=== PATIENT | female | born 1995 | race Caucasian/White ===

== ENCOUNTER → 2017-04-23 | Outpatient (CLI) | payer OTHER ==
[~2017-04-23] MED LIST: PRENTAB26 PO
--- NOTE | 2017-04-23 16:06 | DIAGNOSTIC IMAGING REPORT ---
LUMBAR SPINE W/O CONTRAST CLINICAL HISTORY: 22 years-old Female with LUMBAR RADICULOPATHY. Patient presents with low back pain for 2 years with pain radiating into the left hip and left thigh. No reported trauma. COMPARISON: Lumbar spine radiographs 09/02/2015. TECHNIQUE: Multiplanar, multi sequence MRI of the lumbar spine was performed without intravenous contrast. FINDINGS: The lumbar alignment is normal. The vertebral body heights are normal. There is no T1 fracture line or marrow replacement process. The conus terminates at T12-L1. The visualized spinal cord and cauda equina are normal. There is no paraspinal edema, mass, or prevertebral fluid collection. The intra-abdominal structures are grossly unremarkable. Disc desiccation is noted at L1-L2 and L4-L5. Modic type III endplate changes are seen at L1-L2. There is mild intervertebral disc space narrowing also seen at L5-S1. T12-L1: No central canal or neural foraminal stenosis. L1-L2: Mild intervertebral disc space narrowing with endplate degenerative changes. Circumferential annular disc bulge effaces the ventral thecal sac without significant central canal or foraminal narrowing. L2-L3: Small broad-based posterior disc bulge without central canal or foraminal narrowing. L3-L4: Small broad-based posterior disc bulge without central canal or foraminal narrowing. Trace facet effusions and mild left facet arthropathy. L4-L5: Mild intervertebral disc space narrowing with slight loss of disc height space and signal. There is a central/left paracentral disc protrusion measuring up to 0.5 x 1.4 x 0.4 cm in AP, transverse and craniocaudal dimensions respectively which extends below the superior endplate of L5. This causes mild central canal and moderate left lateral recess stenosis abutting and displacing the adjacent left L5 nerve root as seen on image 19 of the axial series causing mild left foraminal narrowing. The right foramen is patent. There is mild facet arthropathy with trace facet effusions. L5-S1: Mild posterior intervertebral disc space narrowing with broad-based posterior disc bulge, mild facet arthropathy and trace facet effusions. No central canal or foraminal narrowing. IMPRESSION: 1. At L4-L5 there is mild intervertebral disc space narrowing with central/left paracentral disc protrusion causing mild central canal, mild left foraminal and moderate left lateral recess stenosis abutting and displacing the adjacent left L5 nerve root. 2. Mild intervertebral disc space narrowing with circumferential annular disc bulge at L1-L2 without significant central canal or foraminal narrowing. The above report was generated using voice recognition software. It may contain grammatical, syntax or spelling errors. Electronically signed by: Branden No M.D. 04/23/2017 4:05 PM Dictated Date/Time: 04/23/2017 3:56 PM
== END | disposition home or self-care (01) ==
LOC: C.MRI 15:12
PROVIDERS: ATTEND Orthopaedic Surgery
DX: M54.16 Radiculopathy, lumbar region (principal); M99.73 Connective tissue and disc stenosis of intervertebral foramina of lumbar region

== ENCOUNTER 2017-05-13 14:12 | Emergency (ER) | payer OTHER ==
[~2017-05-13] VITALS: Ht 170.2 cm; Wt 69.0 kg
[2017-05-13 14:15] VITALS: BP 130/86; PULSE 87; TEMP 37.4; O2SAT 97; Ht 170.2 cm; Wt 69.0 kg
== END 2017-05-13 15:00 | disposition left against medical advice (07) ==
LOC: C.EDB 14:14
DX: R07.9 Chest pain, unspecified (principal); R06.02 Shortness of breath; R42 Dizziness and giddiness

== ENCOUNTER 2017-05-13 15:10 | Emergency (ER) | payer OTHER ==
[~2017-05-13] VITALS: Ht 170.2 cm; Wt 69.2 kg
[2017-05-13 15:26] VITALS: BP 118/78; PULSE 79; TEMP 36.8; O2SAT 100; Ht 170.2 cm; Wt 69.2 kg
--- NOTE | 2017-05-13 19:49 | EMERGENCY ROOM VISIT NOTE ---
ED Visit Note First contact with patient: 17:46 Upon attempting to evaluate the patient, she had eloped when I arrived.
== END 2017-05-13 17:10 | disposition left against medical advice (07) ==
LOC: C.EDB 15:11 → C.EDC 17:10
DX: Z53.21 Procedure and treatment not carried out due to patient leaving prior to being seen by health care provider (principal)

== ENCOUNTER → 2017-08-06 | Outpatient (CLI) | payer OTHER ==
[2017-08-10 02:18] LABS: CHLAMYDIA TRACH RNA*** NOT DETECTED (NOT DETECTED); GC (NEIS GONORRHOEAE)RNA** NOT DETECTED (NOT DETECTED)
== END | disposition home or self-care (01) ==
LOC: C.LAB1850 16:21
PROVIDERS: ATTEND Obstetrics & Gynecology
DX: Z11.3 Encounter for screening for infections with a predominantly sexual mode of transmission (principal)

== ENCOUNTER → 2017-08-06 | Outpatient (CLI) | payer OTHER | END | disposition home or self-care (01) | LOC: C.PAPS 09:57 | PROVIDERS: ATTEND Obstetrics & Gynecology | DX: Z01.419 Encounter for gynecological examination (general) (routine) without abnormal findings (principal) ==

== ENCOUNTER 2017-09-02 13:39 | Emergency (ER) | payer OTHER ==
[~2017-09-02] VITALS: Ht 170.2 cm; Wt 71.4 kg
[2017-09-02 13:41] VITALS: TEMP 36.6; Ht 170.2 cm; Wt 71.4 kg
[2017-09-02] MEDS ORDERED: BSP/5 PO (14:10)
[2017-09-02] MEDS ORDERED: ZLF/50 PO (14:10)
[2017-09-02] MEDS ORDERED: NORGTAB50 PO (14:10)
--- NOTE | 2017-09-02 14:48 | DIAGNOSTIC IMAGING REPORT ---
RIGHT SHOULDER 3 VIEWS CLINICAL HISTORY: Right shoulder pain. No trauma. FINDINGS: 3 views of the right shoulder are obtained. No prior studies are available for comparison at the time of dictation. The skeletal structures are well mineralized. No fracture or dislocation is seen. The glenohumeral and acromioclavicular joints are well-maintained. The overlying soft tissues are within normal limits. Visualized right lung parenchyma appears clear. IMPRESSION: Unremarkable radiographic assessment of the right shoulder. Electronically signed by: Coy Murray M.D. 09/02/2017 2:47 PM Dictated Date/Time: 09/02/2017 2:46 PM
--- NOTE | 2017-09-02 14:58 | EMERGENCY ROOM VISIT NOTE ---
ED Visit Note First contact with patient: 13:51 CHIEF COMPLAINT: Right shoulder pain HISTORY OF PRESENT ILLNESS: This 22-year-old female presents the ER with chief complaint of right shoulder pain which started yesterday after she got up. The patient states it is getting progressively worse. She denies any known injury. The patient states she did not have the shoulder pain when she woke up yesterday. She points to an area on the mid clavicle where it hurts. The patient denies any prior clavicle fracture. The patient states it hurts to move the shoulder so she has not been moving her arm. The patient is right- hand dominant. The patient states she took ibuprofen at 9 AM without any relief of the pain. REVIEW OF SYSTEMS: 6 system review was performed and was negative unless stated otherwise in history of present illness. PMH: The patient is healthy; left knee surgery SOCIAL HISTORY: Patient lives with her . The patient denies any tobacco or alcohol use. PHYSICAL EXAM: Vital Signs: Were reviewed Reviewed nurse's notes. GEN.: 22-year -old white female appears in no acute distress. MENTAL Status: Alert and oriented 3 RIGHT shoulder: No gross bony deformity noted. No erythema or edema noted. The patient has tenderness palpation over the mid to lateral clavicle area. The patient is nontender to palpation over the bicipital groove or over the humeral head. She has slight tenderness palpation on the trapezius. Limited range of motion secondary to pain although I can passively move the arm in all directions in full range of motion. Embossing Machine Tender strength is 5 out of 5 as compared to the left. The patient has no increased pain with her elbow down by her side and resisted supination of the forearm. EMERGENCY DEPARTMENT COURSE: The patient was evaluated. The patient drove herself to the emergency room therefore she cannot receive any additional stronger pain medication. X-ray of the right shoulder was ordered interpreted by the radiologist and myself. DIAGNOSTICS:RIGHT SHOULDER 3 VIEWS CLINICAL HISTORY: Right shoulder pain. No trauma. FINDINGS: 3 views of the right shoulder are obtained. No prior studies are available for comparison at the time of dictation. The skeletal structures are well mineralized. No fracture or dislocation is seen. The glenohumeral and acromioclavicular joints are well-maintained. The overlying soft tissues are within normal limits. Visualized right lung parenchyma appears clear. IMPRESSION: Unremarkable radiographic assessment of the right shoulder. Electronically signed by: Coy Murray M.D. 09/02/2017 2:47 PM The patient was informed of the findings. The patient is placed in an arm sling and discharged home in stable condition. DIAGNOSIS: Right shoulder pain DISCHARGE INSTRUCTIONS & TREATMENT: Rest the arm in a sling until the pain subsides. Sure you take your arm out of the sling intermittently and move it around to prevent the shoulder from getting stiff. Apply ice to the shoulder intermittently and frequently over the next 24 hours. Ibuprofen 600 mg every 6 hours if needed for pain. Take Flexeril as directed. Do not drive while taking the Flexeril. Take [place] as needed for additional pain relief. Do not drive while taken the [place]. See your own doctor or an orthopedic surgeon if you don't seem to be improving in 4 - 5 days. Current/Historical Medications Scheduled Buspirone HCl (Buspirone HCl), 5 MG PO BID Norgestimate-Ethinyl Estradiol (Previfem), 1 TAB PO DAILY Sertraline HCl (Sertraline HCl), 50 MG PO DAILY Allergies Coded Allergies: No Known Allergies (Unverified , 09/02/17) Vital Signs Date Time Temp Pulse Resp B/P (MAP) Pulse Ox O2 Delivery O2 Flow Rate FiO2 09/02/17 13:41 36.6 97 18 122/81 98 Room Air Departure Information Referrals No Doctor, Assigned (PCP) Patient Instructions [facility]
[2017-09-02] MEDS ORDERED: CYCL10TA6 PO (15:01)
[2017-09-02] MEDS ORDERED: HYDR-5688 PO (15:01)
[2017-09-02 15:25] VITALS: BP 127/85; PULSE 84; O2SAT 98
== END 2017-09-02 15:36 | disposition home or self-care (01) ==
LOC: C.EDB 13:40
DX: M25.511 Pain in right shoulder (principal); Z79.899 Other long term (current) drug therapy

== ENCOUNTER → 2017-09-14 | Outpatient (CLI) | payer OTHER ==
[~2017-09-14] MED LIST changes: +BSP/5 PO; +HYDR-5688 PO; +NORGTAB50 PO; -PRENTAB26 PO; +ZLF/50 PO
[2017-09-14 11:19] LABS: URINE APPEARANCE CLEAR (CLEAR); URINE BILIRUBIN NEG (NEG); URINE COLOR YELLOW; URINE EPITHELIAL CELL AUTO >30 /lpf (0-5); URINE NITRITE NEG (NEG); URINE SPECIFIC GRAVITY 1.022 (1.000-1.030); UROBILINOGEN NEG (NEG)
[2017-09-14 11:27] LABS: MANUAL MICROSCOPIC REQUIRED? NO; REVIEW REQ? NO
== END | disposition home or self-care (01) ==
LOC: C.LABSPEC 10:48
PROVIDERS: ATTEND Physician Assistant
DX: L29.8 Other pruritus (principal); R39.9 Unspecified symptoms and signs involving the genitourinary system

== ENCOUNTER → 2017-10-06 | Outpatient (CLI) | payer OTHER | END | disposition home or self-care (01) | LOC: C.LABSPEC 18:09 | PROVIDERS: ATTEND Physician Assistant | DX: L29.8 Other pruritus (principal) ==

== ENCOUNTER → 2017-10-07 | Outpatient (CLI) | payer OTHER ==
[2017-10-07 17:27] LABS: BASO % 0.3 %; BASO ABS # 0.02 K/uL (0-0.2); EOS ABS # 0.12 K/uL (0-0.5); HEMATOCRIT 36.2 % (37-47); HEMOGLOBIN 11.8 g/dL (12.0-16.0); IG# 0.01 K/uL (0.00-0.02); LYMPH % 34.3 %; LYMPH ABS # 2.08 K/uL (1.2-3.4); MEAN CELL VOLUME 89.4 fL (80-100); MEAN CORPUSCULAR HEMOGLOBIN 29.1 pg (25-34); MEAN CORPUSCULAR HGB CONC 32.6 g/dl (32-36); MEAN PLATELET VOLUME 10.3 fL (7.4-10.4); MONO % 8.7 %; MONO ABS # 0.53 K/uL (0.11-0.59); NEUT % 54.5 %; NEUT ABS # 3.31 K/uL (1.4-6.5); PLATELET COUNT 274 K/uL (130-400); RED CELL DISTRIBUTION WIDTH CV 12.5 % (11.5-14.5); RED CELL DISTRIBUTION WIDTH SD 40.4 fL (36.4-46.3); WHITE BLOOD COUNT 6.07 K/uL (4.8-10.8)
[2017-10-07 17:48] LABS: ALBUMIN 3.1 gm/dl (3.4-5.0); ALT/SGPT 13 U/L (12-78); AST/SGOT 8 U/L (15-37); BLOOD UREA NITROGEN 9 mg/dl (7-18); CALCIUM 8.7 mg/dl (8.5-10.1); CARBON DIOXIDE 27 mmol/L (21-32); CREATININE 0.65 mg/dl (0.60-1.20); GLUCOSE 85 mg/dl (70-99); POTASSIUM 3.8 mmol/L (3.5-5.1); SODIUM 138 mmol/L (136-145)
[2017-10-07 18:01] LABS: ALKALINE PHOSPHATASE 43 U/L (45-117); TOTAL PROTEIN 6.9 gm/dl (6.4-8.2)
[2017-10-08 07:27] LABS: HEMOGLOBIN A1C 5.2 % (4.5-5.6)
== END | disposition home or self-care (01) ==
LOC: C.LAB1850 16:00
PROVIDERS: ATTEND Nurse Practitioner
DX: F53 Mental and behavioral disorders associated with the puerperium, not elsewhere classified (principal)

== ENCOUNTER 2017-12-18 15:58 | Emergency (ER) | payer OTHER ==
[~2017-12-18] VITALS: Ht 170.2 cm; Wt 70.1 kg
[2017-12-18 16:06] VITALS: TEMP 37.2; Ht 170.2 cm; Wt 70.1 kg
[2017-12-18 16:51] LABS: BASO % 0.1 %; BASO ABS # 0.01 K/uL (0-0.2); EOS % 0.1 %; EOS ABS # 0.01 K/uL (0-0.5); HEMATOCRIT 39.5 % (37-47); HEMOGLOBIN 12.7 g/dL (12.0-16.0); IG# 0.03 K/uL (0.00-0.02); LYMPH ABS # 1.33 K/uL (1.2-3.4); MEAN CELL VOLUME 88.2 fL (80-100); MEAN CORPUSCULAR HEMOGLOBIN 28.3 pg (25-34); MEAN CORPUSCULAR HGB CONC 32.2 g/dl (32-36); MEAN PLATELET VOLUME 9.6 fL (7.4-10.4); MONO % 8.5 %; MONO ABS # 1.26 K/uL (0.11-0.59); NEUT % 82.1 %; NEUT ABS # 12.18 K/uL (1.4-6.5); PLATELET COUNT 306 K/uL (130-400); RED CELL DISTRIBUTION WIDTH CV 12.6 % (11.5-14.5); RED CELL DISTRIBUTION WIDTH SD 40.4 fL (36.4-46.3); WHITE BLOOD COUNT 14.82 K/uL (4.8-10.8)
[2017-12-18] MEDS ORDERED: IBUP-103 PO (16:55)
[2017-12-18] MEDS ORDERED: HYDR-5688 PO (16:56)
[2017-12-18 17:10] LABS: INR 1.1 (0.9-1.1)
[2017-12-18 17:16] LABS: CALCIUM 9.3 mg/dl (8.5-10.1); CREATININE 0.87 mg/dl (0.60-1.20); POTASSIUM 3.8 mmol/L (3.5-5.1)
[2017-12-18] MEDS ORDERED: MoRPHine SULFATE 10 MG/ML CARP/VIAL IV STA (17:18)
[2017-12-18] MEDS ORDERED: ONDANSETRON INJ 2 MG/ML 2 ML VIAL IV STA (17:18)
[2017-12-18] MEDS ORDERED: MoRPHine SULFATE 4 MG/ML 1 ML CARP\\VIAL ONE (17:21)
[2017-12-18] MEDS ORDERED: MoRPHine SULFATE 2 MG/ML CARP ONE (17:21)
--- NOTE | 2017-12-18 18:13 | DIAGNOSTIC IMAGING REPORT ---
THORACIC SPINE COMBO HISTORY: Pain eval for epidural abscess TECHNIQUE: Multiplanar multisequence MRI of the thoracic spine was performed both before and after the intravenous administration of contrast. COMPARISON: None. FINDINGS: Normal signal characteristics of the vertebral bodies as well as intervertebral disc. Thoracic cord is unremarkable. No abnormal postcontrast enhancement. Transaxial images show no evidence for spinal stenosis or significant foraminal stenosis. IMPRESSION: Normal study The above report was generated using voice recognition software. It may contain grammatical, syntax or spelling errors. Electronically signed by: Huseyin Celis M.D. 12/18/2017 6:11 PM Dictated Date/Time: 12/18/2017 6:04 PM
--- NOTE | 2017-12-18 18:24 | DIAGNOSTIC IMAGING REPORT ---
LUMBAR SPINE COMBINATION HISTORY: Pain eval for epidural abscess TECHNIQUE: Multiplanar multisequence MRI of the lumbar spine was performed both before and after the intravenous administration of contrast. COMPARISON: 04/23/2017 FINDINGS: For the purpose of the report the L5-S1 disc space will be located on axial image 27 of 30. Interval posterior laminectomy L4-L5. Signal characteristics of the vertebral bodies are considered unremarkable. Mild disc desiccation L4-L5 and L1-L2 are noted. L1-L2: Minimal broad-based disc bulge. No change from the prior exam. L2-L3: No significant central canal or neural foraminal narrowing. L3-L4: No significant central canal or neural foraminal narrowing. L4-L5: Interval posterior laminectomy. Persistent posterior bulging disc. Soft tissue narrowing the spinal canal and impacting of the left lateral recess. Postcontrast enhancement confirms that this is primarily postprocedural scar formation. Immediately posterior to this level is a peripherally enhancing complex fluid pocket measuring 2.0 x 1.3 cm. This potentially represents a residual postprocedural hematoma and/or collection. Does not create a significant impact upon the spinal canal. Postoperative soft tissue changes in addition are unremarkable.. L5-S1: Mild stable multifactorial narrowing of spinal canal. No significant foraminal stenosis. No change from the prior study. IMPRESSION: 1. Interval laminectomy L4-L5. 2. Persistent multifactorial narrowing of the spinal canal primarily secondary to peripheral scar formation at the level of the spinal canal at L4-L5.. 3. Peripherally enhancing collection/hematoma posterior to the spinal canal measuring 2.0 x 1.3 cm. Possibility of a small residual abscess is not excluded. It shows no involvement specifically of the spinal canal and is within the posterior paraspinal musculature/soft tissues. 4. Mild degenerative disc changes as described unaltered from the prior exam. The above report was generated using voice recognition software. It may contain grammatical, syntax or spelling errors. Electronically signed by: Huseyin Celis M.D. 12/18/2017 6:23 PM Dictated Date/Time: 12/18/2017 6:12 PM
[2017-12-18] MEDS ORDERED: CEFTRIAXONE SOD INJ 1 GM ADDVIAL IV STA (19:03)
[2017-12-18] MEDS ORDERED: MoRPHine SULFATE 4 MG/ML 1 ML CARP\\VIAL IV STA (19:35)
[2017-12-18] MEDS ORDERED: AMOX875T PO (19:43)
[2017-12-18] MEDS ORDERED: AMOXICIL/CLAVU 875MG HOME PACK PO ONE (19:45)
--- NOTE | 2017-12-18 19:48 | DIAGNOSTIC IMAGING REPORT ---
CHEST 2 VIEWS ROUTINE CLINICAL HISTORY: eval fro pna chest pain. Fever. COMPARISON STUDY: No previous studies for comparison. FINDINGS: The bones soft tissues and hemidiaphragms are normal. The cardiomediastinal silhouette is normal. The lungs are clear. The pulmonary vasculature is normal. IMPRESSION: Negative chest. The above report was generated using voice recognition software. It may contain grammatical, syntax or spelling errors. Electronically signed by: Huseyin Celis M.D. 12/18/2017 7:47 PM Dictated Date/Time: 12/18/2017 7:47 PM
[2017-12-18 19:51] VITALS: BP 126/86; PULSE 81; O2SAT 99
--- NOTE | 2017-12-18 22:27 | EMERGENCY ROOM VISIT NOTE ---
History Report prepared by John: Zeyad Malhotra Under the Supervision of: Dr. Wade Woods M.D. First contact with patient: 16:12 Chief Complaint: BACK PAIN Stated Complaint: NERVE(REVERE) PAIN IN BACK AND LEGS, FEVER History of Present Illness The patient is a 22 year old female who presents to the Emergency Room with complaints of worsening back pain that started over 8 weeks ago. She states that she had surgery in [place] [address] Gibbs of neurosurgery due to back and disc issues. The patient says that she had an L4-L5 laminectomy, and had a disc shaved that was protruding. She states that her low back pain lessened after her surgery, but she has been having worsening "nerve pain" down both legs, and feels like something is wrong with her hips, as she gets referred pain there as well. She notes that she had the referred pain before the surgery, but it has worsened since the surgery. The patient states that the pain goes down into both her feet, and when she gets a "spasm", she has pain that shoots down her back, bilateral thighs, and sometimes into her hips. She called her surgeon prior to arrival and was told that she should not have this pain. The patient states that it hurts to move, causing her to have trouble to get out of the car, for example, but she has no true weakness in her legs. She also denies any loss of control of her bladder or bowels, or any numbness. The patient adds that she can never get her feet warm, and her urine has been dark. The patient notes that she has a large incision in her back, but denies any notable redness or drainage from the wound. She notes that she started developing fevers last week that occur mostly at night. She states that her temperature would get as high as 102 to 103, and when she last took her temperature last night, her temperature was 102.8. She did take Tylenol at that time. The patient says that she has been having yellowish vaginal discharge for 7 months, and was seen by Alexandria Malone, and was told that it was a yeast infection. She has had a pelvic exam during these months, and was tested for STD 's, which was negative. The patient denies any groin pain or numbness in her groin area. She also denies any cold or flu symptoms, cough, headaches, rashes, or increased frequency or burning with urination. She notes no chance of . Source of History: patient Onset: Over 8 weeks ago Position: back Symptom Intensity: hard to get out of car Quality: other (pain) Timing: worsening Associated Symptoms: + fevers, + urinary symptoms (urine slightly darker), No cough (or cold or flu symptoms), No neck pain, No weakness, No numbness, No rash Note: Associated symptoms: Hip pain. Vaginal discharge for months. Denies pelvic pain , increased frequency or burning with urination. Review of Systems See HPI for pertinent positives & negatives. A total of 10 systems reviewed and were otherwise negative. Past Medical & Surgical Medical Problems: (1) with 37 weeks completed gestation (2) Prolonged rupture of membranes (3) Uterine contractions at greater than 20 weeks of gestation (4) Vaginal discharge during in third trimester Family History Cancer Social History Smoking Status: Never Smoker Drug Use: none Marital Status: , in relationship Occupation Status: employed, student Current/Historical Medications Scheduled Amoxicillin & Pot Clavulanate (Augmentin 875-125 mg), 875 MG PO BID Ibuprofen Tab (Advil), 800 MG PO Q6H Norgestimate-Ethinyl Estradiol (Previfem), 1 TAB PO DAILY Scheduled PRN Hydrocodone/Acetaminophen 5MG/325MG ([place] 5MG/325MG), 1 TAB PO TID PRN for Pain Allergies Coded Allergies: No Known Allergies (Unverified , 09/02/17) Physical Exam Vital Signs Date Time Temp Pulse Resp B/P (MAP) Pulse Ox O2 Delivery O2 Flow Rate FiO2 12/18/17 19:51 81 20 126/86 99 12/18/17 18:36 88 16 115/75 98 Room Air 12/18/17 16:06 37.2 135 18 121/84 98 Room Air Physical Exam Constitutional: Vital signs reviewed. Eyes: Pupils are equal round reactive to light. Conjunctiva are noninjected. ENT: Pharynx is clear without erythema or exudate. Mucous membranes are moist. Neck supple without meningeal signs. Respiratory: Clear to auscultation bilaterally. Breath sounds are equal bilaterally. Cardiovascular: Regular rate and rhythm. No rubs or gallops. GI: Soft, nondistended and nontender. Bowel sounds are present. Pelvic: Some whitish discharge, no CMT, no adnexal or uterine tenderness. Musculoskeletal: Has midline incision to lower lumbar spine without signs of cellulitis or drainage. No midline tenderness to the thoracic or lumbosacral spine. Integumentary: No cyanosis. Neurological: The patient is awake and alert. Patient has normal motor strength throughout lower extremities and normal sensation throughout lower extremities. DTRs 2+ in both knees and ankles. Psychiatric: Normal affect. Medical Decision & Procedures ER Provider Diagnostic Interpretation: Radiology results as stated below per my review and the radiologist's interpretation: THORACIC SPINE COMBO HISTORY: Pain eval for epidural abscess TECHNIQUE: Multiplanar multisequence MRI of the thoracic spine was performed both before and after the intravenous administration of contrast. COMPARISON: None. FINDINGS: Normal signal characteristics of the vertebral bodies as well as intervertebral disc. Thoracic cord is unremarkable. No abnormal postcontrast enhancement. Transaxial images show no evidence for spinal stenosis or significant foraminal stenosis. IMPRESSION: Normal study The above report was generated using voice recognition software. It may contain grammatical, syntax or spelling errors. Electronically signed by: Huseyin Celis M.D. 12/18/2017 6:11 PM Dictated Date/Time: 12/18/2017 6:04 PM LUMBAR SPINE COMBINATION HISTORY: Pain eval for epidural abscess TECHNIQUE: Multiplanar multisequence MRI of the lumbar spine was performed both before and after the intravenous administration of contrast. COMPARISON: 04/23/2017 FINDINGS: For the purpose of the report the L5-S1 disc space will be located on axial image 27 of 30. Interval posterior laminectomy L4-L5. Signal characteristics of the vertebral bodies are considered unremarkable. Mild disc desiccation L4-L5 and L1-L2 are noted. L1-L2: Minimal broad-based disc bulge. No change from the prior exam. L2-L3: No significant central canal or neural foraminal narrowing. L3-L4: No significant central canal or neural foraminal narrowing. L4-L5: Interval posterior laminectomy. Persistent posterior bulging disc. Soft tissue narrowing the spinal canal and impacting of the left lateral recess. Postcontrast enhancement confirms that this is primarily postprocedural scar formation. Immediately posterior to this level is a peripherally enhancing complex fluid pocket measuring 2.0 x 1.3 cm. This potentially represents a residual postprocedural hematoma and/or collection. Does not create a significant impact upon the spinal canal. Postoperative soft tissue changes in addition are unremarkable.. L5-S1: Mild stable multifactorial narrowing of spinal canal. No significant foraminal stenosis. No change from the prior study. IMPRESSION: 1. Interval laminectomy L4-L5. 2. Persistent multifactorial narrowing of the spinal canal primarily secondary to peripheral scar formation at the level of the spinal canal at L4-L5.. 3. Peripherally enhancing collection/hematoma posterior to the spinal canal measuring 2.0 x 1.3 cm. Possibility of a small residual abscess is not excluded. It shows no involvement specifically of the spinal canal and is within the posterior paraspinal musculature/soft tissues. 4. Mild degenerative disc changes as described unaltered from the prior exam. The above report was generated using voice recognition software. It may contain grammatical, syntax or spelling errors. Electronically signed by: Huseyin Celis M.D. 12/18/2017 6:23 PM Dictated Date/Time: 12/18/2017 6:12 PM CHEST 2 VIEWS ROUTINE CLINICAL HISTORY: eval fro pna chest pain. Fever. COMPARISON STUDY: No previous studies for comparison. FINDINGS: The bones soft tissues and hemidiaphragms are normal. The cardiomediastinal silhouette is normal. The lungs are clear. The pulmonary vasculature is normal. IMPRESSION: Negative chest. The above report was generated using voice recognition software. It may contain grammatical, syntax or spelling errors. Electronically signed by: Huseyin Celis M.D. 12/18/2017 7:47 PM Dictated Date/Time: 12/18/2017 7:47 PM Laboratory Results 12/18/17 16:40 Red Blood Count 4.48, Mean Corpuscular Volume 88.2, Mean Corpuscular Hemoglobin 28.3, Mean Corpuscular Hemoglobin Concent 32.2, Mean Platelet Volume 9.6, Neutrophils (%) (Auto) 82.1, Lymphocytes (%) (Auto) 9.0, Monocytes (%) (Auto) 8.5, Eosinophils (%) (Auto) 0.1, Basophils (%) (Auto) 0.1, Neutrophils # (Auto) 12.18, Lymphocytes # (Auto) 1.33, Monocytes # (Auto) 1.26, Eosinophils # (Auto) 0.01, Basophils # (Auto) 0.01 12/18/17 16:40 Test 12/18/17 16:40 12/18/17 18:40 White Blood Count 14.82 K/uL (4.8-10.8) Red Blood Count 4.48 M/uL (4.2-5.4) Hemoglobin 12.7 g/dL (12.0-16.0) Hematocrit 39.5 % (37-47) Mean Corpuscular Volume 88.2 fL (80-100) Mean Corpuscular Hemoglobin 28.3 pg (25-34) Mean Corpuscular Hemoglobin Concent 32.2 g/dl (32-36) Platelet Count 306 K/uL (130-400) Mean Platelet Volume 9.6 fL (7.4-10.4) Neutrophils (%) (Auto) 82.1 % Lymphocytes (%) (Auto) 9.0 % Monocytes (%) (Auto) 8.5 % Eosinophils (%) (Auto) 0.1 % Basophils (%) (Auto) 0.1 % Neutrophils # (Auto) 12.18 K/uL (1.4-6.5) Lymphocytes # (Auto) 1.33 K/uL (1.2-3.4) Monocytes # (Auto) 1.26 K/uL (0.11-0.59) Eosinophils # (Auto) 0.01 K/uL (0-0.5) Basophils # (Auto) 0.01 K/uL (0-0.2) RDW Standard Deviation 40.4 fL (36.4-46.3) RDW Coefficient of Variation 12.6 % (11.5-14.5) Immature Granulocyte % (Auto) 0.2 % Immature Granulocyte # (Auto) 0.03 K/uL (0.00-0.02) Prothrombin Time 11.4 SECONDS (9.0-12.0) Prothromb Time International Ratio 1.1 (0.9-1.1) Activated Partial Thromboplast Time 30.0 SECONDS (21.0-31.0) Partial Thromboplastin Ratio 1.2 Urine Color YELLOW Urine Appearance CLEAR (CLEAR) Urine pH >= 9.0 (4.5-7.5) Urine Specific [place] 1.021 (1.000-1.030) Urine Protein NEG (NEG) Urine Glucose (UA) NEG (NEG) Urine Ketones NEG (NEG) Urine Occult Blood NEG (NEG) Urine Nitrite NEG (NEG) Urine Bilirubin NEG (NEG) Urine Urobilinogen NEG (NEG) Urine Leukocyte Esterase SMALL (NEG) Urine WBC (Auto) 10-30 /hpf (0-5) Urine RBC (Auto) 0-4 /hpf (0-4) Urine Hyaline Casts (Auto) 1-5 /lpf (0-5) Urine Epithelial Cells (Auto) >30 /lpf (0-5) Urine Bacteria (Auto) NEG (NEG) Urine Test NEG (NEG) Anion Gap 7.0 mmol/L (3-11) Est Creatinine Clear Calc Drug Dose 98.7 ml/min Estimated GFR () 109.6 Estimated GFR (Non- 94.6 BUN/Creatinine Ratio 11.9 (10-20) Calcium Level 9.3 mg/dl (8.5-10.1) Chemistry Specimen Hemolysis Date/Time Source Procedure Growth Status 12/18/17 18:40 Vaginal Swab Trichomonas Preparation - Final Complete Laboratory results as reviewed by me. Medications Administered Medications (Trade) Dose Ordered Sig/José Manuel Route Start Time Stop Time Status Last Admin Dose Admin Ondansetron HCl (Zofran Inj) 4 mg NOW STAT IV 12/18/17 17:18 12/18/17 17:20 DC 12/18/17 17:30 4 MG Morphine Sulfate (MoRPHine SULFATE INJ) 2 mg STK-MED ONCE .ROUTE 12/18/17 17:21 12/18/17 17:22 DC 12/18/17 17:30 2 MG Morphine Sulfate (MoRPHine SULFATE INJ) 4 mg STK-MED ONCE .ROUTE 12/18/17 17:21 12/18/17 17:22 DC 12/18/17 17:29 4 MG Ceftriaxone Sodium (Rocephin Inj) 1 gm NOW STAT IV 12/18/17 19:03 12/18/17 19:04 DC 12/18/17 19:27 1 GM Morphine Sulfate (MoRPHine SULFATE INJ) 4 mg NOW STAT IV 12/18/17 19:35 12/18/17 19:36 DC 12/18/17 19:39 4 MG Amoxicillin/ Clavulanate Potassium (Augmentin 875MG Home Pack) 1 homepack UD ONCE PO 12/18/17 19:45 12/18/17 19:46 DC 12/18/17 19:47 1 HOMEPACK ED Course 1614: The patient was evaluated in room A12B. A complete history and physical exam was performed. 1718: Zofran Inj 4 mg IV, Morphine Sulfate Inj 6 mg IV. 184: I discussed the MRI results with the patient. Pelvic exam revealed some whitish discharge, no CMT, no adnexal or uterine tenderness. 185: I discussed the patient with Dr. Gibbs - [facility]ally Invasive Neurosurgery - as well as the MRI results. He felt that the changes were all post-operative and did not represent abscess. He recommended to place the patient on Augmentin for 2 weeks and he will follow-up with her in the office. 1901: I reevaluated the patient and told her and her family about Dr. Gibbs's recommendations. 1902: Rocephin Inj 1 gm IV. 1934: Morphine Sulfate Inj 4 mg IV. 1939: I reevaluated the patient and she says that she is having a little more pain so I will give her some more pain medication. I reviewed her medications with her, and she says that she has Percocet at home for pain. She will be discharged. Medical Decision This is a 22-year-old female presents with fever and low back pain. Differential diagnosis includes epidural abscess, discitis, UTI, PID, pneumonia. I did perform a limited focused review of portions of the patient's old chart on the electronic medical record. The patient has had no recent pertinent visits to this hospital. I did evaluate the patient as noted above. The patient is neurologically intact without signs of cauda equina syndrome. Her wound is without signs of infection. IV access was established. The patient was placed on a continuous manager cardiac cath. I did treat her with IV morphine and Zofran. I did order and personally review the patient's urine analysis and chest x-ray as described above. Urine analysis was somewhat equivocal. A urine culture was sent. She denies having any urinary symptoms. I did order and review the patient's blood work as noted in the electronic medical record. Her white count is 14,000. I did order an MRI of the thoracic and lumbosacral spine. I did review the images myself as well as the radiology report as described above. There is no evidence of epidural abscess. She does have a fluid collection measuring 2 x 1.3 cm within the posterior paraspinal musculature and soft tissue. I did perform a pelvic examination as noted above. She has had discharge for about 7 months. I did obtain cultures and testing for STI's. She has no signs of PID. I did discuss the test results with the patient and her mother. I also discussed the case with Dr. Gibbs, her neurosurgeon. He recommended placing the patient on 2 weeks of Augmentin. He stated that she had a UTI prior to her surgery. He stated that he would see her in the office later this week. The patient has Percocet at home for pain. I did discuss the plan with her and she was discharged with a home pack of Augmentin and a 12 day prescription for Augmentin. Medication Reconcilliation Current Medication List: was personally reviewed by me Blood Pressure Screening Patient's blood pressure: Normal blood pressure Consults Time Called: 1844 Consulting Physician: Dr. Gibbs - Minimally Invasive Neurosurgery Returned Call: [phone] I discussed the patient with Dr. Gibbs - [facility]ally Invasive Neurosurgery - as well as the MRI results. He felt that the changes were all post-operative and did not represent abscess. He recommended to place the patient on Augmentin for 2 weeks and he will follow-up with her in the office. Impression Primary Impression: Low back pain Additional Impressions: Fever Vaginal discharge Scribe Attestation The scribe's documentation has been prepared under my direct and personally reviewed by me in its entirety. I confirm that the note above accurately reflects all work, treatment, procedures, and medical decision making performed by me. Departure Information Dispostion Home / Self-Care Prescriptions Amoxicillin & Pot Clavulanate (Augmentin 875-125 mg) 1 Tab Tab 875 MG PO BID for 12 Days, #24 TAB Prov: Wade Woods M.D. 12/18/17 Referrals Sirisha Hansen (PCP) Patient Instructions My [facility] Additional Instructions You have been examined and treated today on an emergency basis only. This is not a substitute for, or an effort to provide, complete comprehensive medical care. It is impossible to recognize and treat all injuries or illnesses in a single emergency department visit. It is therefore important that you follow up closely with your physician and neurosurgeon. Call as soon as possible for an appointment. Return for worsening symptoms or if you develop vomiting, abdominal pain, loss of control of your bowel or bladder, numbness or weakness to your legs, numbness to your private area, difficulty urinating, or any other concerning symptoms. Problem Qualifiers Primary Impression: Low back pain Chronicity: unspecified Back pain laterality: unspecified Sciatica presence : with sciatica Sciatica laterality: bilateral sciatica Qualified Codes: M54.42 - Lumbago with sciatica, left side; M54.41 - Lumbago with sciatica, right side Additional Impressions: Fever Fever type: unspecified Qualified Codes: R50.9 - Fever, unspecified
== END 2017-12-18 19:51 | disposition home or self-care (01) ==
LOC: C.EDB 16:00 → C.EDA 19:51
DX: M54.41 Lumbago with sciatica, right side (principal); M54.42 Lumbago with sciatica, left side; R50.9 Fever, unspecified; N89.8 Other specified noninflammatory disorders of vagina; R82.90 Unspecified abnormal findings in urine; Z79.3 Long term (current) use of hormonal contraceptives; Z79.899 Other long term (current) drug therapy